=== PATIENT | male | born 1965 | race Two or more races ===

== ENCOUNTER 2023-01-10 08:03 | Emergency (ER) | payer OTHER ==
[~2023-01-10] VITALS: Ht 165.1 cm; Wt 100.0 kg
[2023-01-10 09:24] VITALS: BP 156/88
[2023-01-10] MEDS ORDERED: IBUP800T27 PO (09:56)
== END 2023-01-10 10:05 | disposition home or self-care (01) ==
LOC: EDBD 08:03 → ER 08:03
DX: S29.011A Strain of muscle and tendon of front wall of thorax, initial encounter (principal); Z88.6 Allergy status to analgesic agent; V49.9XXA Car occupant (driver) (passenger) injured in unspecified traffic accident, initial encounter; Y93.89 Activity, other specified; Y92.89 Other specified places as the place of occurrence of the external cause; Y99.8 Other external cause status
CPT/HCPCS: 71046; 93005